=== PATIENT | female | born 1975 | race Two or more races ===

== ENCOUNTER 2019-06-28 07:53 | Outpatient (CLI) | payer OTHER | END 2019-06-28 07:57 | disposition home or self-care (01) | LOC: SONOGRAMA 07:53 | DX: D25.2 Subserosal leiomyoma of uterus (principal) ==

== ENCOUNTER 2024-06-08 09:34 | Outpatient (CLI) | payer OTHER | END 2024-06-08 09:43 | disposition home or self-care (01) | LOC: RAD 09:34 | PROVIDERS: ATTEND Ophthalmology | DX: Z01.811 Encounter for preprocedural respiratory examination (principal) ==

== ENCOUNTER 2024-06-08 10:04 | Outpatient (CLI) | payer OTHER | END 2024-06-08 10:08 | disposition home or self-care (01) | LOC: EKG 10:04 | PROVIDERS: ATTEND Ophthalmology | DX: I10 Essential (primary) hypertension (principal) ==